=== PATIENT | male | born 1955 | race Caucasian/White ===

== ENCOUNTER 2019-05-20 16:27 | Inpatient (IN) | payer BC ==
[~2019-05-20] VITALS: Ht 182.9 cm; Wt 86.3 kg
[2019-05-20] VITALS (8 sets, daily range): BP systolic 154–210; BP diastolic 83–118
[2019-05-20 17:15] LABS: BASO # 0.1 10*3/uL (0.0-0.1); BASO % 0.8 % (0.0-1.0); EOS # 0.3 10*3/uL (0.0-0.4); EOS % 3.3 % (1.0-4.0); HEMATOCRIT 43.3 % (42.0-52.0); HEMOGLOBIN 14.2 g/dl (14.0-18.0); LYMPH # 2.6 10*3/uL (1.3-4.4); LYMPH % 29.8 % (27.0-41.0); MEAN CORPUSCULAR HGB 32.1 pg (27.0-31.0); MEAN CORPUSCULAR HGB CONC 32.8 g/dl (33.0-37.0); MEAN PLATELET VOLUME 9.1 fl (9.6-12.3); MONO # 0.9 10*3/uL (0.1-1.0); MONO % 10.3 % (3.0-9.0); NEUT # 4.8 10*3/uL (2.3-7.9); NEUT % 55.6 % (47.0-73.0); PLATELET COUNT AUTOMATED 244 10*3/uL (130-400); RED BLOOD COUNT 4.42 10*6/uL (4.50-5.90); WHITE BLOOD COUNT 8.7 10*3/uL (4.8-10.8)
[2019-05-20 17:29] LABS: INTERNATIONAL NORM RATIO 0.9 (2.0-3.5)
[2019-05-20 17:32] LABS: ALBUMIN 3.8 gm/dl (3.1-4.5); ALKALINE PHOSPHATASE 56 U/L (45-117); BUN 16 mg/dl (7-24); CHLORIDE 106 mmol/L (98-107); CREATININE 0.93 mg/dL (0.70-1.30); POTASSIUM 4.2 mmol/L (3.5-5.1); SGOT/AST 35 IU/L (3-35); SGPT/ALT 36 U/L (12-78); SODIUM 139 mmol/L (136-145); TOTAL PROTEIN 7.7 gm/dL (6.4-8.2)
[2019-05-20 17:35] LABS: TROPONIN I < 0.015 ng/ml (<0.045)
--- NOTE | 2019-05-20 21:30 | NUR ---
A 64, admitted to 5E, under the services of PATRICK Chi DO with a diagnosis of HYPERTENSIVE URGENCY. Chief complaint is HIGH BLOOD PRESSURE AND COUGH. Patient arrived via stretcher from ER. Monitor applied. Initial assessment completed. Vital signs taken and recorded. PATRICK CHI DO notified of admission to the unit. Orders received. See assessment for past medical history, medications and allergies. Patient and/or family oriented to unit. [address] visitation policy reviewed. Clothing/patient valuable form completed. INITIAL ASSESSMENT COMPLETED. LUNGS WERE CLEAR, DENIES SOB, ABDOMEN SOFT, NONTENDER, NONDISTENDED, BSX4, DENIES N/V/D/C, NO WOUNDS PRESENT ON ADMISSION. DENIES PAIN. ONLY COMPLAINING OF A COUGH. IV IN LAC IS C/D/I. MONITOR IS ON. DR. SILVA NOTIFIED OF PT REQUESTING SOMETHING FOR COUGH. ALL QUESTIONS WERE ANSWERED AT THIS TIME. ROOM ORIENTATION AND CALL LIGHT USE WAS PROVIDED BRIGITTE ABDI
[2019-05-21] VITALS: BP 149/56
[2019-05-21 06:48] LABS: BUN 15 mg/dl (7-24); CHLORIDE 107 mmol/L (98-107); CHOLESTEROL 173 mg/dL (<200); CREATININE 0.95 mg/dL (0.70-1.30); HDL CHOLESTEROL 54 mg/dl (40-60); LDL CHOLESTEROL 102 mg/dL (9-159); PHOSPHOROUS 3.8 mg/dL (2.5-4.9); POTASSIUM 4.3 mmol/L (3.5-5.1); SODIUM 140 mmol/L (136-145); TRIGLYCERIDES 83 mg/dl (<150); VLDL CHOLESTEROL 17 mg/dL (6-40)
--- NOTE | 2019-05-21 07:42 | NUR ---
NOTIFIED DR. TADEO OF PT'S BP.
[2019-05-21 08:00] VITALS: BP 158/88; BP 160/102
--- NOTE | 2019-05-21 09:00 | NUR ---
Child Attendant in to talk to patient. Patient states lives at home with his . There are basement steps in the home. Physician: no family physician Pharmacy: [facility] Home health services: none Patient's level of ADLs: INDEPENDENT Patient has working utilities: yes DME: none Follow-up physician's appointment after d/c: will be made by the hospitalist nurse director upon discharge Does patient want to access PORTAL?: no Discharge plan discussed with patient and his who is sitting at his bedside. He lives at home with his . He is independent in her ADLs and ambulation. Discussed home health care services and he denies any home needs at this time. When medically stable he will be discharged to home. His will provide transportation on discharge. ALEJO STEWART
[2019-05-21 12:00] VITALS: BP 154/94
[2019-05-21 16:00] VITALS: BP 172/86
--- NOTE | 2019-05-21 19:15 | NUR ---
VISITING WITH . NO DISTRESS NOTED. NO VOICED COMPLAINTS
--- NOTE | 2019-05-21 19:59 | NUR ---
24 HR chart check completed.
[2019-05-21 20:00] VITALS: BP 158/86
--- NOTE | 2019-05-21 21:00 | NUR ---
RESTING IN BED WATCHING TV WITH NO DISTRESS NOTED. RESPIRATIONS EASY. LUNGS DIMINISHED, CLEAR. PULES OX 97% RA. NON-PROD COUGH NOTED. CALL LIGHT WITHIN REACH. NO VOICED COMPLAINTS
[2019-05-22] VITALS: BP 148/84; BP 149/87
--- NOTE | 2019-05-22 00:30 | NUR ---
RESTING WITH EYES CLOSED. NO DISTRESS NOTED. RESPIRATIONS EASY. VSS. CALL LIGHT WITHIN REACH
--- NOTE | 2019-05-22 06:00 | NUR ---
SLEPT THROUGHOUT NIGHT WITH NO DISTRESS NOTED. RESPIRATIONS EASY. CALL LIGHT WITHIN REACH. NO VOICED COMPLAINTS THIS SHIFT
[2019-05-22 08:00] VITALS: BP 152/96
--- NOTE | 2019-05-22 08:15 | NUR ---
PT RESTING IN BED WITH VISITOR AT HIS SIDE. RESP-EASY AND REGULAR. NO C/O AT THIS TIME. DR. TADEO INTO SEE PT. AWARE OF BP 152/96. PT TOLERATED ROUTINE AM MEDICATION. CALL LIGHT IN REACH. SEE SHIFT ASSESSMENT.
--- NOTE | 2019-05-22 09:00 | NUR ---
case management visits with patient he stated he is being discharged today and denies any home needs
[2019-05-22] MEDS ORDERED: LISINOPRIL20 MG PO (09:44)
[2019-05-22] MEDS ORDERED: MUCINEX ER600 MG PO (09:44)
--- NOTE | 2019-05-22 11:00 | NUR ---
Discharge instructions reviewed with patient/family. Patient receptive and verbalizes understanding. Follow-up care arranged. Written instructions given to patient/family. [facility] REMOVED 2X2 APPLIED. AMBULATORY OFF THE FLOOR FOR DISCHARGED. KHOI SAINZ
== END 2019-05-22 11:00 | disposition home or self-care (01) | DRG 305 ==
LOC: ED 16:27 → EDHOLD 19:36 → 5E 19:36 → EDHOLD 20:06 → 5E 20:13
PROVIDERS: Physician Assistant; Student in an Organized Health Care Education/Training Program; ADMIT Internal Medicine
DX: I16.1 Hypertensive emergency (principal); E44.1 Mild protein-calorie malnutrition; D75.89 Other specified diseases of blood and blood-forming organs; J06.9 Acute upper respiratory infection, unspecified; E83.41 Hypermagnesemia; E66.3 Overweight; M19.90 Unspecified osteoarthritis, unspecified site; Z91.040 Latex allergy status; Z82.49 Family history of ischemic heart disease and other diseases of the circulatory system; Z82.3 Family history of stroke; Z68.25 Body mass index [BMI] 25.0-25.9, adult

== ENCOUNTER → 2019-05-29 | Outpatient (CLI) | payer BC ==
[~2019-05-29] MED LIST: LISINOPRIL20 MG PO; MUCINEX ER600 MG PO
== END | disposition home or self-care (01) ==
LOC: RESCLI 00:28
DX: I10 Essential (primary) hypertension (principal); M19.90 Unspecified osteoarthritis, unspecified site; Z76.89 Persons encountering health services in other specified circumstances; Z79.899 Other long term (current) drug therapy

== ENCOUNTER → 2019-06-30 | Outpatient (CLI) | payer BC | END | disposition home or self-care (01) | LOC: RESCLI 02:15 | DX: I10 Essential (primary) hypertension (principal); M19.90 Unspecified osteoarthritis, unspecified site; Z78.9 Other specified health status; Z79.899 Other long term (current) drug therapy ==

== ENCOUNTER → 2019-08-06 | Outpatient (CLI) | payer BC | END | disposition home or self-care (01) | LOC: RESCLI 00:49 | DX: Z12.11 Encounter for screening for malignant neoplasm of colon (principal); Z12.5 Encounter for screening for malignant neoplasm of prostate; I10 Essential (primary) hypertension; J00 Acute nasopharyngitis [common cold]; M19.90 Unspecified osteoarthritis, unspecified site; Z78.9 Other specified health status ==

== ENCOUNTER → 2021-02-17 | Outpatient (CLI) | payer BC | END | disposition home or self-care (01) | LOC: CARD 02-09 13:00 | PROVIDERS: ATTEND Nurse Practitioner Family | DX: I08.2 Rheumatic disorders of both aortic and tricuspid valves (principal) ==